=== PATIENT | female | born 1940 | race African-American/Black ===

== ENCOUNTER 2019-01-26 21:48 | Inpatient (IN) | payer MEDICARE ==
[~2019-01-26] VITALS: Ht 158.8 cm; Wt 72.7 kg
[2019-01-26] MEDS ORDERED: ALBUTEROL (0.083%) 2.5MG/3ML NEB HHN STA (22:44)
[2019-01-26 23:14] LABS: BASOPHILS % 0.6 % (0.0-2.0); EOSINOPHILS % 0.1 % (0.0-5.0); HEMATOCRIT. 35.2 % (36.0-48.0); HEMOGLOBIN. 11.5 g/dL (12.0-16.0); LYMPHOCYTES % 11.7 % (20.0-50.0); MEAN CORPUSCULAR HEMOGLOBIN 30.1 pg (28.0-32.0); MEAN CORPUSCULAR VOLUME 92.1 fL (81.0-99.0); MEAN PLATELET VOLUME 8.8 fl (7.4-10.4); MONOCYTES % 6.6 % (2.0-8.0); PLATELET 324 x1000/uL (130-400); RED BLOOD CELL COUNT 3.82 mill/uL (4.2-5.4)
[2019-01-26] MEDS ORDERED: LEVOFLOXACIN 500MG PREMIX 100 ML IV ONE (23:15)
[2019-01-26 23:20] LABS: CHLORIDE 104 mEq/L (98-107)
[2019-01-26 23:22] LABS: INR 1.1; PROTHROMBIN TIME 11.1 sec (9.1-11.1)
[2019-01-26] MEDS ORDERED: FUROSEMIDE 20MG/2ML VIAL IVP ONE (23:45)
[2019-01-27] LABS: CLARITY URINE CLOUDY (CLEAR); COLOR URINE YELLOW (YELLOW); KETONES URINE NEGATIVE (NEGATIVE); LEUKOCYTE ESTERASE URINE NEGATIVE (NEGATIVE); NITRITE URINE NEGATIVE (NEGATIVE); OCCULT BLOOD URINE TRACE (NEGATIVE); PH URINE 6.5 (4.5-8.0); PROTEIN URINE 3+ (NEGATIVE); SPECIFIC GRAVITY URINE 1.014 (1.005-1.030)
[2019-01-27] MEDS ORDERED: GUAIFENESIN 200MG/10ML SUGAR FREE UDC PO PRN (00:30)
[2019-01-27] MEDS ORDERED: MAGNESIUM/ALUMINUM HYDROXIDE/SIMETHICONE 30ML UDC PO PRN (00:30)
[2019-01-27] MEDS ORDERED: ACETAMINOPHEN 325MG TABLET PO PRN (00:30)
[2019-01-27] MEDS ORDERED: IPRATROPIUM/ALBUTEROL 0.5-3(2.5)MG/3ML NEB INH PRN (00:30)
[2019-01-27 03:02] LABS: CHLORIDE 105 mEq/L (98-107)
[2019-01-27] MEDS ORDERED: CEFTRIAXONE 1 G PREMIX 50 ML IV NR (03:45)
[2019-01-27] MEDS: ONDANSETRON HCL 4MG/2ML INJ IV PRN (05:27)
[2019-01-27 06:55] LABS: CREATINE KINASE MB FRACTION 1.1 ng/mL (0.5-3.6)
[2019-01-27] MEDS: HYDROCODONE/ACETAMINOPHEN 5/325MG TABLET PO PRN ×3 (10:05→19:03)
[2019-01-27] MEDS: FUROSEMIDE 40MG/4ML VIAL IV SCH (10:05)
[2019-01-27] MEDS: ASPIRIN 81MG EC TABLET PO SCH (10:05)
[2019-01-27] MEDS: CLONIDINE 0.1MG TABLET PO PRN ×2 (10:31→16:19)
[2019-01-27 12:30] VITALS: BP 140/90
[2019-01-27 14:00] VITALS: BP_SYST 140; BP_SYST 166; BP_DIAS 103; BP_DIAS 90
[2019-01-27] MEDS: ENOXAPARIN 40MG/0.4ML SYR SUBCUT SCH (14:30)
[2019-01-27] MEDS ORDERED: DEXTROSE 50% WATER 50ML SYRINGE IV PRN (14:30)
[2019-01-27 15:25] LABS: CREATINE KINASE 53 IU/L (26-192)
[2019-01-27 15:27] LABS: CREATINE KINASE MB FRACTION 1.5 ng/mL (0.5-3.6)
[2019-01-27 16:00] VITALS: BP 165/103
[2019-01-27] MEDS: BLOOD SUGAR DIAGNOSTIC STRIP TEST SCH ×2 (17:30→21:17)
[2019-01-27 17:35] LABS: *AMPHETAMINES SCREEN URINE NEGATIVE (NEGATIVE); *BARBITURATES SCREEN URINE NEGATIVE (NEGATIVE); *BENZODIAZEPINES SCREEN URINE NEGATIVE (NEGATIVE); *COCAINE SCREEN URINE NEGATIVE (NEGATIVE)
[2019-01-27 17:36] LABS: CANNABINOID URINE SCREEN NEGATIVE (NEGATIVE); METHADONE URINE SCREEN NEGATIVE (NEGATIVE); OPIATES URINE SCREEN PRESUMTIVE POSITIVE (NEGATIVE); PHENCYCLIDINE URINE SCREEN NEGATIVE (NEGATIVE)
[2019-01-27] MEDS ORDERED: [UNRECOGNIZED DRUG - OTHER] PO (17:55)
[2019-01-27] MEDS ORDERED: TRIA1TAB92 MT (17:55)
[2019-01-27] MEDS ORDERED: ASPI-1159 MT (17:55)
[2019-01-27] MEDS ORDERED: ATEN50TA MT (17:55)
[2019-01-27 19:35] VITALS: BP 147/87
[2019-01-27] MEDS: INSULIN LISPRO 100 UNITS/ML SUBCUT SCH ×2 (19:40→21:00)
[2019-01-27 20:00] VITALS: BP 127/73
[2019-01-27] MEDS: MORPHINE SULFATE 4 MG/ML CPJ (NOT FOR IM USE) IV PRN (21:57)
[2019-01-27 22:00] VITALS: BP 139/83
[2019-01-28] VITALS (12 sets, daily range): BP systolic 115–163; BP diastolic 38–95
[2019-01-28] MEDS: MORPHINE SULFATE 4 MG/ML CPJ (NOT FOR IM USE) IV PRN ×4 (04:12→20:23)
[2019-01-28] MEDS: HYDROCODONE/ACETAMINOPHEN 5/325MG TABLET PO PRN ×2 (05:28→18:33)
[2019-01-28] MEDS ORDERED: CEFTRIAXONE 1,000 MG in DEXTROSE 5% WATER 50 ML IV SCH (06:00)
[2019-01-28] MEDS ORDERED: CEFTRIAXONE 1 G PREMIX 50 ML IV SCH (06:00)
[2019-01-28 06:40] LABS: BASOPHILS % 0.7 % (0.0-2.0); EOSINOPHILS % 3.3 % (0.0-5.0); HEMATOCRIT. 33.8 % (36.0-48.0); HEMOGLOBIN. 11.1 g/dL (12.0-16.0); LYMPHOCYTES % 32.3 % (20.0-50.0); MEAN CORPUSCULAR HEMOGLOBIN 30.1 pg (28.0-32.0); MEAN CORPUSCULAR VOLUME 91.3 fL (81.0-99.0); MEAN PLATELET VOLUME 8.8 fl (7.4-10.4); NEUTROPHILS % 53.7 % (40.0-76.0); PLATELET 350 x1000/uL (130-400); RED CELL DISTRIBUTION WIDTH 13.8 % (11.6-14.6)
[2019-01-28 07:25] LABS: T4 FREE 1.69 ng/dL (0.76-1.46)
[2019-01-28] MEDS: BLOOD SUGAR DIAGNOSTIC STRIP TEST SCH ×4 (07:30→21:23)
[2019-01-28] MEDS: INSULIN LISPRO 100 UNITS/ML SUBCUT SCH ×4 (08:00→21:00)
[2019-01-28] MEDS: ASPIRIN 81MG EC TABLET PO SCH (08:58)
[2019-01-28] MEDS: FUROSEMIDE 40MG/4ML VIAL IV SCH ×2 (08:58→17:21)
[2019-01-28] MEDS: ENOXAPARIN 40MG/0.4ML SYR SUBCUT SCH (08:58)
[2019-01-28] MEDS: CEFTRIAXONE 1,000 MG in DEXTROSE 5% WATER 50 ML IV SCH (09:26)
[2019-01-28] MEDS ORDERED: HYDRALAZINE 20MG/ML VIAL IV NR (10:45)
[2019-01-28] MEDS ORDERED: AMLO-337 MT (11:18)
[2019-01-28] MEDS ORDERED: ATOR40TA70 MT (11:18)
[2019-01-28] MEDS ORDERED: TRAM50TA3 MT (11:19)
[2019-01-28] MEDS ORDERED: ONDA8TAB6 MT (11:20)
[2019-01-28] MEDS: AZITHROMYCIN 500 MG TABLET PO SCH (12:54)
[2019-01-28] MEDS: LOSARTAN POTASSIUM 50 MG TABLET PO SCH ×2 (12:54→17:21)
[2019-01-28] MEDS ORDERED: HYDRALAZINE 20MG/ML VIAL IV PRN (14:00)
[2019-01-28] MEDS ORDERED: GUAIFENESIN-DM 200MG-20MG/10ML UDC PO PRN (16:30)
[2019-01-28] MEDS: APIXABAN 5 MG TABLET PO SCH (17:21)
[2019-01-28] MEDS ORDERED: ATEN100T MT (17:43)
[2019-01-28] MEDS: METFORMIN HCL 500MG TABLET PO SCH (18:33)
[2019-01-28] MEDS: ATORVASTATIN CALCIUM 40MG TABLET PO SCH (21:22)
[2019-01-28] MEDS: ATENOLOL 100 MG TABLET PO SCH (21:22)
[2019-01-28] MEDS: AMLODIPINE 5MG TABLET PO SCH (21:22)
[2019-01-29] VITALS (12 sets, daily range): BP systolic 95–156; BP diastolic 47–81
[2019-01-29] MEDS: MORPHINE SULFATE 4 MG/ML CPJ (NOT FOR IM USE) IV PRN ×5 (02:23→20:38)
[2019-01-29] MEDS: CEFTRIAXONE 1,000 MG in DEXTROSE 5% WATER 50 ML IV SCH (05:26)
[2019-01-29 06:53] LABS: BASOPHILS % 0.4 % (0.0-2.0); HEMATOCRIT. 33.2 % (36.0-48.0); HEMOGLOBIN. 10.9 g/dL (12.0-16.0); LYMPHOCYTES % 32.2 % (20.0-50.0); MEAN CORPUSCULAR HEMOGLOBIN 30.1 pg (28.0-32.0); MEAN PLATELET VOLUME 8.2 fl (7.4-10.4); MONOCYTES % 10.2 % (2.0-8.0); NEUTROPHILS % 53.2 % (40.0-76.0); PLATELET 394 x1000/uL (130-400); RED BLOOD CELL COUNT 3.61 mill/uL (4.2-5.4)
[2019-01-29] MEDS: BLOOD SUGAR DIAGNOSTIC STRIP TEST SCH ×4 (07:48→20:38)
[2019-01-29] MEDS: METFORMIN HCL 500MG TABLET PO SCH ×2 (09:18→18:23)
[2019-01-29] MEDS: LOSARTAN POTASSIUM 50 MG TABLET PO SCH ×2 (09:18→18:23)
[2019-01-29] MEDS: FUROSEMIDE 40MG/4ML VIAL IV SCH ×2 (09:18→18:23)
[2019-01-29] MEDS: AMLODIPINE 5MG TABLET PO SCH (09:19)
[2019-01-29] MEDS: ATENOLOL 100 MG TABLET PO SCH (09:19)
[2019-01-29] MEDS: APIXABAN 5 MG TABLET PO SCH ×2 (09:19→18:23)
[2019-01-29] MEDS: AZITHROMYCIN 500 MG TABLET PO SCH (09:19)
[2019-01-29] MEDS: INSULIN LISPRO 100 UNITS/ML SUBCUT SCH ×4 (09:20→20:45)
[2019-01-29] MEDS: DILTIAZEM HCL 30MG TABLET PO SCH ×2 (12:24→18:24)
[2019-01-29] MEDS: LORAZEPAM 1MG TABLET PO SCH ×2 (12:25→18:23)
[2019-01-29] MEDS: SPIRONOLACTONE 25MG TABLET PO SCH (12:25)
[2019-01-29] MEDS ORDERED: LORA1TAB PO (13:26)
[2019-01-29] MEDS ORDERED: GABA-531 PO (13:27)
[2019-01-29] MEDS: ATORVASTATIN CALCIUM 40MG TABLET PO SCH (20:37)
[2019-01-29] MEDS: CARVEDILOL 25MG TABLET PO SCH (20:37)
[2019-01-30] VITALS (15 sets, daily range): BP systolic 93–152; BP diastolic 56–93
[2019-01-30] MEDS: CEFTRIAXONE 1,000 MG in DEXTROSE 5% WATER 50 ML IV SCH (05:00)
[2019-01-30] MEDS: DILTIAZEM HCL 30MG TABLET PO SCH ×3 (05:01→12:43)
[2019-01-30] MEDS: MORPHINE SULFATE 4 MG/ML CPJ (NOT FOR IM USE) IV PRN ×4 (05:39→19:48)
[2019-01-30 06:56] LABS: BASOPHILS % 0.4 % (0.0-2.0); EOSINOPHILS % 4.2 % (0.0-5.0); HEMATOCRIT. 32.9 % (36.0-48.0); HEMOGLOBIN. 10.8 g/dL (12.0-16.0); LYMPHOCYTES % 23.4 % (20.0-50.0); MEAN CORPUSCULAR HEMOGLOBIN 29.9 pg (28.0-32.0); MEAN CORPUSCULAR VOLUME 91.6 fL (81.0-99.0); MEAN PLATELET VOLUME 7.9 fl (7.4-10.4); MONOCYTES % 8.9 % (2.0-8.0); NEUTROPHILS % 63.1 % (40.0-76.0); PLATELET 397 x1000/uL (130-400); RED BLOOD CELL COUNT 3.59 mill/uL (4.2-5.4); RED CELL DISTRIBUTION WIDTH 14.3 % (11.6-14.6)
[2019-01-30 07:30] LABS: CHLORIDE 104 mEq/L (98-107)
[2019-01-30] MEDS: FUROSEMIDE 40MG/4ML VIAL IV SCH ×2 (08:14→18:05)
[2019-01-30] MEDS: METFORMIN HCL 500MG TABLET PO SCH ×2 (08:14→18:08)
[2019-01-30] MEDS: LOSARTAN POTASSIUM 50 MG TABLET PO SCH ×2 (08:16→18:05)
[2019-01-30] MEDS: SPIRONOLACTONE 25MG TABLET PO SCH (08:16)
[2019-01-30] MEDS: APIXABAN 5 MG TABLET PO SCH ×2 (08:16→18:05)
[2019-01-30] MEDS: AZITHROMYCIN 500 MG TABLET PO SCH (08:17)
[2019-01-30] MEDS: LORAZEPAM 1MG TABLET PO SCH ×2 (08:17→18:05)
[2019-01-30] MEDS: CARVEDILOL 25MG TABLET PO SCH ×2 (08:18→20:19)
[2019-01-30] MEDS: BLOOD SUGAR DIAGNOSTIC STRIP TEST SCH ×4 (08:28→21:00)
[2019-01-30] MEDS: INSULIN LISPRO 100 UNITS/ML SUBCUT SCH ×4 (08:36→21:00)
[2019-01-30] MEDS: DOCUSATE SODIUM 100MG CAPSULE PO PRN (08:36)
[2019-01-30] MEDS: DILTIAZEM HCL 120MG CAPSULE CD 24HR PO SCH (15:36)
[2019-01-30 16:39] LABS: HEPATITIS B SURFACE ANTIGEN NEGATIVE
[2019-01-30] MEDS: ATORVASTATIN CALCIUM 40MG TABLET PO SCH (20:19)
[2019-01-31] VITALS (8 sets, daily range): BP systolic 108–147; BP diastolic 56–102
[2019-01-31] MEDS: MORPHINE SULFATE 4 MG/ML CPJ (NOT FOR IM USE) IV PRN ×4 (04:48→20:45)
[2019-01-31] MEDS: CEFTRIAXONE 1,000 MG in DEXTROSE 5% WATER 50 ML IV SCH (05:00)
[2019-01-31] MEDS: HYDROCODONE/ACETAMINOPHEN 5/325MG TABLET PO PRN ×4 (05:12→21:36)
[2019-01-31] MEDS: BLOOD SUGAR DIAGNOSTIC STRIP TEST SCH ×4 (06:27→21:51)
[2019-01-31 07:15] LABS: CHLORIDE 103 mEq/L (98-107)
[2019-01-31 07:25] LABS: BASOPHILS % 0.4 % (0.0-2.0); EOSINOPHILS % 3.4 % (0.0-5.0); HEMATOCRIT. 33.2 % (36.0-48.0); HEMOGLOBIN. 10.6 g/dL (12.0-16.0); LYMPHOCYTES % 22.1 % (20.0-50.0); MEAN CORPUSCULAR HEMOGLOBIN 29.6 pg (28.0-32.0); MEAN CORPUSCULAR VOLUME 92.4 fL (81.0-99.0); MEAN PLATELET VOLUME 8.1 fl (7.4-10.4); NEUTROPHILS % 64.1 % (40.0-76.0); PLATELET 389 x1000/uL (130-400); RED BLOOD CELL COUNT 3.59 mill/uL (4.2-5.4); RED CELL DISTRIBUTION WIDTH 14.3 % (11.6-14.6)
[2019-01-31] MEDS: METFORMIN HCL 500MG TABLET PO SCH ×2 (09:49→17:07)
[2019-01-31] MEDS: SPIRONOLACTONE 25MG TABLET PO SCH (09:50)
[2019-01-31] MEDS: FUROSEMIDE 40MG/4ML VIAL IV SCH ×2 (09:50→17:06)
[2019-01-31] MEDS: LORAZEPAM 1MG TABLET PO SCH ×2 (09:51→17:07)
[2019-01-31] MEDS: DILTIAZEM HCL 120MG CAPSULE CD 24HR PO SCH (09:52)
[2019-01-31] MEDS: CARVEDILOL 25MG TABLET PO SCH ×2 (09:53→21:35)
[2019-01-31] MEDS: LOSARTAN POTASSIUM 50 MG TABLET PO SCH ×2 (09:53→17:07)
[2019-01-31] MEDS: AZITHROMYCIN 500 MG TABLET PO SCH (09:54)
[2019-01-31] MEDS: APIXABAN 5 MG TABLET PO SCH ×2 (09:54→17:07)
[2019-01-31] MEDS: INSULIN LISPRO 100 UNITS/ML SUBCUT SCH ×2 (18:00→23:03)
[2019-01-31] MEDS: ATORVASTATIN CALCIUM 40MG TABLET PO SCH (21:34)
[2019-02-01] VITALS: BP 144/74
[2019-02-01] MEDS: CEFTRIAXONE 1,000 MG in DEXTROSE 5% WATER 50 ML IV SCH (05:42)
[2019-02-01 08:00] VITALS: BP 156/82
[2019-02-01] MEDS: METFORMIN HCL 500MG TABLET PO SCH ×2 (08:00→18:00)
[2019-02-01] MEDS: BLOOD SUGAR DIAGNOSTIC STRIP TEST SCH ×4 (08:24→21:00)
[2019-02-01] MEDS: MORPHINE SULFATE 4 MG/ML CPJ (NOT FOR IM USE) IV PRN ×3 (08:37→18:07)
[2019-02-01] MEDS: AZITHROMYCIN 500 MG TABLET PO SCH (09:00)
[2019-02-01] MEDS: APIXABAN 5 MG TABLET PO SCH ×2 (11:00→16:47)
[2019-02-01] MEDS: LOSARTAN POTASSIUM 50 MG TABLET PO SCH ×2 (11:00→16:47)
[2019-02-01] MEDS: SPIRONOLACTONE 25MG TABLET PO SCH (11:00)
[2019-02-01] MEDS: DILTIAZEM HCL 120MG CAPSULE CD 24HR PO SCH (11:00)
[2019-02-01] MEDS: FUROSEMIDE 40MG/4ML VIAL IV SCH ×2 (11:01→16:47)
[2019-02-01] MEDS: CARVEDILOL 25MG TABLET PO SCH ×2 (11:01→20:46)
[2019-02-01] MEDS: LORAZEPAM 1MG TABLET PO SCH ×2 (11:01→16:47)
[2019-02-01] MEDS: INSULIN LISPRO 100 UNITS/ML SUBCUT SCH ×4 (11:03→22:43)
[2019-02-01 12:00] VITALS: BP 110/67
[2019-02-01] MEDS: ONDANSETRON HCL 4MG/2ML INJ IV PRN (14:45)
[2019-02-01 16:00] VITALS: BP 102/54
[2019-02-01] MEDS: DOCUSATE SODIUM 100MG CAPSULE PO PRN (20:40)
[2019-02-01] MEDS: ATORVASTATIN CALCIUM 40MG TABLET PO SCH (20:40)
[2019-02-02] MEDS: HYDROCODONE/ACETAMINOPHEN 5/325MG TABLET PO PRN ×3 (05:00→16:39)
[2019-02-02] MEDS ORDERED: CEFTRIAXONE 1 G PREMIX 50 ML IV SCH (06:00)
[2019-02-02] MEDS: BLOOD SUGAR DIAGNOSTIC STRIP TEST SCH ×2 (06:45→12:30)
[2019-02-02 07:40] VITALS: BP 110/68
[2019-02-02 08:00] VITALS: BP 110/68
[2019-02-02] MEDS ORDERED: REGADENOSON 0.4 MG/5 ML IV ONE ×2 (08:37→08:49)
[2019-02-02] MEDS: SPIRONOLACTONE 25MG TABLET PO SCH (10:37)
[2019-02-02] MEDS: LOSARTAN POTASSIUM 50 MG TABLET PO SCH ×2 (10:38→17:15)
[2019-02-02] MEDS: CARVEDILOL 25MG TABLET PO SCH (10:39)
[2019-02-02] MEDS: APIXABAN 5 MG TABLET PO SCH ×2 (10:39→17:14)
[2019-02-02] MEDS: METFORMIN HCL 500MG TABLET PO SCH ×2 (10:39→17:14)
[2019-02-02] MEDS: FUROSEMIDE 40MG/4ML VIAL IV SCH ×2 (10:40→17:00)
[2019-02-02] MEDS: LORAZEPAM 1MG TABLET PO SCH ×2 (10:40→17:15)
[2019-02-02] MEDS: DILTIAZEM HCL 120MG CAPSULE CD 24HR PO SCH (10:40)
[2019-02-02] MEDS: INSULIN LISPRO 100 UNITS/ML SUBCUT SCH ×3 (10:50→17:48)
[2019-02-02] MEDS ORDERED: MORPHINE SULFATE 4 MG/ML CPJ (NOT FOR IM USE) IV PRN (11:15)
[2019-02-02 12:00] VITALS: BP 121/53
[2019-02-02] MEDS ORDERED: REGADENOSON 0.4 MG/5 ML IV NR (13:30)
[2019-02-02] MEDS ORDERED: METF500T PO (13:45)
[2019-02-02] MEDS ORDERED: SPIR25TA PO (13:45)
[2019-02-02] MEDS ORDERED: LIP40 PO (13:45)
[2019-02-02] MEDS ORDERED: DILT120C88 PO (13:45)
[2019-02-02] MEDS ORDERED: COR25 PO (13:45)
[2019-02-02] MEDS ORDERED: APIX5TAB PO (13:45)
[2019-02-02 16:00] VITALS: BP 132/66
[2019-02-02 17:51] VITALS: BP 120/61
== END 2019-02-02 19:10 | disposition home health service (06) | DRG 291 ==
LOC: ER 21:48 → 5EST 23:34 → EDBEDREQ 23:45 → EDBEDREQTM 23:45
PROVIDERS: ADMIT Internal Medicine; ATTEND Internal Medicine
DX: I13.0 Hypertensive heart and chronic kidney disease with heart failure and stage 1 through stage 4 chronic kidney disease, or unspecified chronic kidney disease (principal); J18.9 Pneumonia, unspecified organism; J96.01 Acute respiratory failure with hypoxia; I50.23 Acute on chronic systolic (congestive) heart failure; J44.0 Chronic obstructive pulmonary disease with (acute) lower respiratory infection; J44.1 Chronic obstructive pulmonary disease with (acute) exacerbation; E44.1 Mild protein-calorie malnutrition; I42.9 Cardiomyopathy, unspecified; D64.9 Anemia, unspecified; E78.00 Pure hypercholesterolemia, unspecified; E78.5 Hyperlipidemia, unspecified; E11.22 Type 2 diabetes mellitus with diabetic chronic kidney disease; F41.9 Anxiety disorder, unspecified; I27.20 Pulmonary hypertension, unspecified; I34.0 Nonrheumatic mitral (valve) insufficiency; I48.2 Chronic atrial fibrillation; N18.2 Chronic kidney disease, stage 2 (mild); Z96.659 Presence of unspecified artificial knee joint; G89.29 Other chronic pain; Z79.01 Long term (current) use of anticoagulants; Z68.28 Body mass index [BMI] 28.0-28.9, adult; Z87.891 Personal history of nicotine dependence; Z87.81 Personal history of (healed) traumatic fracture; Z79.899 Other long term (current) drug therapy; Z79.82 Long term (current) use of aspirin
CPT/HCPCS: 36415; 70551; 71045; 78452; 80048; 80061; 80305; 82550; 82553; 82962; 83036; 83605; 83735; 83880; 84145; 84439; 84443; 84484; 93005; 93017; 93306; 93970; 94640; 96365; 96366; 96375; 97162; 99291; A9500; C1893; J0360; J0696; J1650; J1815; J1940; J1956; J2270; J2405; J2785; J7040; J7050; J7060; J7611; J7620

== ENCOUNTER 2019-11-22 04:12 | Inpatient (IN) | payer MEDICARE ==
[~2019-11-22] VITALS: Ht 162.6 cm; Wt 64.4 kg
[~2019-11-22 04:12] MED LIST: APIX5TAB PO; ASPI-1497 MT; ATOR40TA70 MT; COR25 PO; DILT120C88 PO; GABA-531 PO; LIP40 PO; LORA1TAB PO; METF500T PO; SPIR25TA PO; TRAM50TA3 MT
[2019-11-22] MEDS ORDERED: ALBUTEROL (0.083%) 2.5MG/3ML NEB HHN STA (04:16)
[2019-11-22] MEDS ORDERED: IPRATROPIUM BROMIDE (0.02%) 0.5MG/2.5ML NEB HHN STA (04:16)
[2019-11-22] MEDS ORDERED: ONDANSETRON HCL 4MG/2ML INJ IV STA (04:16)
[2019-11-22] MEDS ORDERED: DILTIAZEM HCL 5MG/ML 5ML VIAL IV ONE (04:30)
[2019-11-22] MEDS ORDERED: ASPIRIN 81MG TABLET PO ONE (04:30)
[2019-11-22 04:43] LABS: BG BASE EXCESS -7.7 mmol/L (-2.0-2.0); BG BILEVEL POS AIRWAY PRESSURE 15/5; BG CARBOXYHEMOGLOBIN 0.1 % (0.5-1.5); BG DEOXYHEMOGLOBIN 0.4 % (0.0-5.0); BG FRACTION INSPIRED OXYGEN 100; BG HCO3 ACT 16.6 mmol/L (22.0-26.0); BG METHEMOGLOBIN 0.3 % (0.0-1.5); BG OXYGEN SATURATION 99.6 % (92.0-98.5); BG OXYHEMOGLOBIN 99.2 % (94.0-97.0); BG PCO2 30.3 mmHg (35.0-45.0); BG PH 7.356 (7.350-7.450); BG PO2 306.9 mmHg (75.0-100.0); BG SAMPLE SITE LEFT RADIAL; BG TOTAL HEMOGLOBIN 12.8 g/dL (12.0-18.0); BG VENT MODE MASK - BIPAP; BG VENT RATE 16 set
[2019-11-22 05:01] LABS: CHLORIDE 106 mEq/L (98-107)
[2019-11-22 05:18] LABS: BASOPHILS % 0.5 % (0.0-2.0); EOSINOPHILS % 0.4 % (0.0-5.0); HEMATOCRIT. 38.2 % (36.0-48.0); LYMPHOCYTES % 20.1 % (20.0-50.0); MEAN CORPUSCULAR HEMOGLOBIN 29.2 pg (28.0-32.0); MEAN CORPUSCULAR VOLUME 92.6 fL (81.0-99.0); MEAN PLATELET VOLUME 9.6 fl (7.4-10.4); MONOCYTES % 7.3 % (2.0-8.0); NEUTROPHILS % 71.7 % (40.0-76.0); PLATELET 308 x1000/uL (130-400); RED BLOOD CELL COUNT 4.12 mill/uL (4.2-5.4); RED CELL DISTRIBUTION WIDTH 14.3 % (11.6-14.6)
[2019-11-22 05:37] LABS: INR 1.1; PARTIAL THROMBOPLASTIN TIME 27.8 sec (23.4-31.0); PROTHROMBIN TIME 11.7 sec (9.6-11.0)
[2019-11-22 05:40] LABS: CLARITY URINE CLEAR (CLEAR); COLOR URINE DARK YELLOW (YELLOW); KETONES URINE NEGATIVE (NEGATIVE); LEUKOCYTE ESTERASE URINE NEGATIVE (NEGATIVE); NITRITE URINE NEGATIVE (NEGATIVE); OCCULT BLOOD URINE TRACE (NEGATIVE); PH URINE 6.5 (4.5-8.0); PROTEIN URINE 4+ (NEGATIVE); SPECIFIC GRAVITY URINE 1.017 (1.005-1.030)
[2019-11-22] MEDS ORDERED: VISCOUS LIDOCAINE 2% 15 ML UDC PO ONE (05:45)
[2019-11-22] MEDS ORDERED: MAGNESIUM/ALUMINUM HYDROXIDE/SIMETHICONE 30ML UDC PO ONE (05:45)
[2019-11-22] MEDS ORDERED: FUROSEMIDE 40MG/4ML VIAL IVP ONE (06:00)
[2019-11-22] MEDS ORDERED: METHYLPREDNISOLONE SOD SUCC 40 MG/ML VIAL IV SCH (10:00)
[2019-11-22] MEDS: IPRATROPIUM/ALBUTEROL 0.5-3(2.5)MG/3ML NEB HHN PRN (10:11)
[2019-11-22] MEDS ORDERED: DEXTROSE 50% WATER 50ML SYRINGE IV PRN (10:15)
[2019-11-22] MEDS ORDERED: POTASSIUM CHLORIDE 20MEQ TABLET SR PO NR (10:15)
[2019-11-22] MEDS ORDERED: ACETAMINOPHEN 325MG TABLET PO PRN (10:15)
[2019-11-22] MEDS ORDERED: IPRATROPIUM BROMIDE (0.02%) 0.5MG/2.5ML NEB HHN PRN (10:15)
[2019-11-22] MEDS ORDERED: FUROSEMIDE 40MG/4ML VIAL IVP SCH (10:15)
[2019-11-22] MEDS ORDERED: FUROSEMIDE 40MG/4ML VIAL IVP NR (10:45)
[2019-11-22] MEDS ORDERED: DILTIAZEM HCL 60MG TABLET PO NR (10:45)
[2019-11-22] MEDS ORDERED: LEVOFLOXACIN 750MG PREMIX 150 ML IV SCH (11:15)
[2019-11-22] MEDS ORDERED: CLONIDINE 0.1MG TABLET PO PRN (11:15)
[2019-11-22] MEDS ORDERED: DILTIAZEM HCL 60MG TABLET PO SCH (12:00)
[2019-11-22 12:23] LABS: BG BASE EXCESS -1.7 mmol/L (-2.0-2.0); BG DEOXYHEMOGLOBIN 4.7 % (0.0-5.0); BG FRACTION INSPIRED OXYGEN 28; BG HCO3 ACT 19.1 mmol/L (22.0-26.0); BG METHEMOGLOBIN 0.3 % (0.0-1.5); BG OXYGEN SATURATION 95.3 % (92.0-98.5); BG PCO2 22.5 mmHg (35.0-45.0); BG PH 7.547 (7.350-7.450); BG PO2 70.6 mmHg (75.0-100.0); BG SAMPLE SITE RIGHT BRACHIAL; BG TOTAL HEMOGLOBIN 12.1 g/dL (12.0-18.0); BG VENT MODE NASAL CANNULA
[2019-11-22] MEDS: HYDROCODONE/ACETAMINOPHEN 5/325MG TABLET PO PRN ×3 (12:58→21:31)
[2019-11-22] MEDS ORDERED: APIXABAN 5 MG TABLET PO SCH (13:00)
[2019-11-22] MEDS: BLOOD SUGAR DIAGNOSTIC STRIP TEST SCH ×3 (13:15→21:53)
[2019-11-22] MEDS: LOSARTAN POTASSIUM 50 MG TABLET PO SCH (13:40)
[2019-11-22] MEDS: APIXABAN 5 MG TABLET PO SCH (13:40)
[2019-11-22] MEDS: SPIRONOLACTONE 25MG TABLET PO SCH (14:00)
[2019-11-22] MEDS: INSULIN LISPRO 100 UNITS/ML SUBCUT SCH ×3 (14:00→21:00)
[2019-11-22] MEDS: LEVOFLOXACIN 750MG PREMIX 150 ML IV SCH (14:03)
[2019-11-22] MEDS: DILTIAZEM HCL 60MG TABLET PO SCH ×2 (15:22→21:31)
[2019-11-22] MEDS: FUROSEMIDE 40MG/4ML VIAL IVP SCH (17:07)
[2019-11-22 19:40] VITALS: BP 148/96
[2019-11-22 20:00] VITALS: BP 148/96
[2019-11-22] MEDS: CARVEDILOL 6.25 MG TABLET PO SCH (21:31)
[2019-11-23] VITALS: BP 122/92
[2019-11-23] MEDS: APIXABAN 5 MG TABLET PO SCH ×3 (00:03→20:32)
[2019-11-23] MEDS: HYDROCODONE/ACETAMINOPHEN 5/325MG TABLET PO PRN ×3 (01:47→12:15)
[2019-11-23] MEDS: IPRATROPIUM/ALBUTEROL 0.5-3(2.5)MG/3ML NEB HHN PRN ×3 (02:28→20:55)
[2019-11-23] MEDS: ONDANSETRON HCL 4MG/2ML INJ IV PRN ×2 (03:51→20:31)
[2019-11-23 04:00] VITALS: BP 136/77
[2019-11-23] MEDS: DILTIAZEM HCL 60MG TABLET PO SCH ×3 (07:11→22:26)
[2019-11-23 07:14] LABS: HEMOGLOBIN. 11.3 g/dL (12.0-16.0); LYMPHOCYTES % 10.8 % (20.0-50.0); MEAN CORPUSCULAR HEMOGLOBIN 29.4 pg (28.0-32.0); MEAN CORPUSCULAR VOLUME 90.9 fL (81.0-99.0); MONOCYTES % 6.7 % (2.0-8.0); NEUTROPHILS % 82.5 % (40.0-76.0); PLATELET 360 x1000/uL (130-400); RED BLOOD CELL COUNT 3.85 mill/uL (4.2-5.4); RED CELL DISTRIBUTION WIDTH 14.8 % (11.6-14.6)
[2019-11-23] MEDS: BLOOD SUGAR DIAGNOSTIC STRIP TEST SCH ×4 (07:14→20:46)
[2019-11-23] MEDS: INSULIN LISPRO 100 UNITS/ML SUBCUT SCH ×4 (07:15→21:01)
[2019-11-23 07:35] LABS: CHLORIDE 106 mEq/L (98-107)
[2019-11-23 08:00] VITALS: BP 152/106
[2019-11-23] MEDS: CARVEDILOL 6.25 MG TABLET PO SCH ×2 (09:32→20:32)
[2019-11-23] MEDS: FUROSEMIDE 40MG/4ML VIAL IVP SCH ×2 (09:32→17:07)
[2019-11-23] MEDS: SPIRONOLACTONE 25MG TABLET PO SCH (09:32)
[2019-11-23] MEDS: LOSARTAN POTASSIUM 50 MG TABLET PO SCH (09:32)
[2019-11-23 12:00] VITALS: BP 149/92
[2019-11-23] MEDS ORDERED: FAMOTIDINE 20MG/2ML VIAL IV SCH (12:15)
[2019-11-23] MEDS ORDERED: LACTULOSE 20G/30ML UDC PO SCH (12:15)
[2019-11-23] MEDS: MORPHINE SULFATE 2 MG/ML CPJ (NOT FOR IM USE) IV PRN ×2 (15:16→20:34)
[2019-11-23 16:00] VITALS: BP 150/99
[2019-11-23 20:00] VITALS: BP 152/96
[2019-11-23] MEDS ORDERED: FAMOTIDINE 40MG TABLET PO SCH (21:00)
[2019-11-24] VITALS: BP 135/99
[2019-11-24] MEDS: HYDROCODONE/ACETAMINOPHEN 5/325MG TABLET PO PRN ×2 (00:13→17:18)
[2019-11-24] MEDS: IPRATROPIUM/ALBUTEROL 0.5-3(2.5)MG/3ML NEB HHN PRN (00:39)
[2019-11-24] MEDS: ONDANSETRON HCL 4MG/2ML INJ IV PRN ×2 (03:40→07:05)
[2019-11-24 04:00] VITALS: BP 164/91
[2019-11-24] MEDS: BLOOD SUGAR DIAGNOSTIC STRIP TEST SCH ×4 (06:58→21:00)
[2019-11-24] MEDS: DILTIAZEM HCL 60MG TABLET PO SCH ×3 (07:06→22:31)
[2019-11-24] MEDS: MORPHINE SULFATE 2 MG/ML CPJ (NOT FOR IM USE) IV PRN ×2 (07:06→10:33)
[2019-11-24] MEDS: INSULIN LISPRO 100 UNITS/ML SUBCUT SCH ×4 (07:12→21:00)
[2019-11-24 07:28] LABS: BASOPHILS % 0.3 % (0.0-2.0); HEMATOCRIT. 34.9 % (36.0-48.0); HEMOGLOBIN. 11.4 g/dL (12.0-16.0); MEAN CORPUSCULAR HEMOGLOBIN 29.7 pg (28.0-32.0); MEAN CORPUSCULAR VOLUME 90.9 fL (81.0-99.0); MEAN PLATELET VOLUME 9.1 fl (7.4-10.4); NEUTROPHILS % 81.7 % (40.0-76.0); PLATELET 381 x1000/uL (130-400); RED BLOOD CELL COUNT 3.84 mill/uL (4.2-5.4); RED CELL DISTRIBUTION WIDTH 14.7 % (11.6-14.6)
[2019-11-24 08:00] VITALS: BP 132/98
[2019-11-24] MEDS: SPIRONOLACTONE 25MG TABLET PO SCH (09:00)
[2019-11-24] MEDS: CARVEDILOL 6.25 MG TABLET PO SCH (09:00)
[2019-11-24] MEDS: LOSARTAN POTASSIUM 50 MG TABLET PO SCH (09:05)
[2019-11-24] MEDS: APIXABAN 5 MG TABLET PO SCH ×2 (09:05→22:30)
[2019-11-24] MEDS: FUROSEMIDE 40MG/4ML VIAL IVP SCH ×2 (09:05→17:00)
[2019-11-24 12:00] VITALS: BP 141/86
[2019-11-24] MEDS ORDERED: PANTOPRAZOLE 40MG DR TABLET PO PRN (12:00)
[2019-11-24] MEDS: LEVOFLOXACIN 750MG PREMIX 150 ML IV SCH (14:00)
[2019-11-24 16:00] VITALS: BP 150/86
[2019-11-24] MEDS: FLUTICASONE PROPIONATE 50MCG/SPRAY BOTTLE BOTHNSTRLS SCH ×2 (16:00→22:31)
[2019-11-24] MEDS: MONTELUKAST SODIUM 10MG TABLET PO SCH (17:18)
[2019-11-24] MEDS ORDERED: NA PHOS,M-B/NA PHOS,DI-BA ENEMA 118ML PR NR (19:15)
[2019-11-24 20:00] VITALS: BP 146/84
[2019-11-24] MEDS: CARVEDILOL 12.5MG TABLET PO SCH (22:31)
[2019-11-24] MEDS: FAMOTIDINE 20MG TABLET PO SCH (23:44)
[2019-11-25] VITALS: BP 129/67
[2019-11-25 04:00] VITALS: BP 150/94
[2019-11-25] MEDS: DILTIAZEM HCL 60MG TABLET PO SCH ×3 (06:08→22:00)
[2019-11-25] MEDS: BLOOD SUGAR DIAGNOSTIC STRIP TEST SCH ×4 (06:09→21:45)
[2019-11-25 07:00] LABS: BASOPHILS % 0.3 % (0.0-2.0); EOSINOPHILS % 0.2 % (0.0-5.0); HEMATOCRIT. 33.2 % (36.0-48.0); LYMPHOCYTES % 25.9 % (20.0-50.0); MEAN CORPUSCULAR VOLUME 90.2 fL (81.0-99.0); MEAN PLATELET VOLUME 9.3 fl (7.4-10.4); MONOCYTES % 7.1 % (2.0-8.0); NEUTROPHILS % 66.5 % (40.0-76.0); PLATELET 360 x1000/uL (130-400); RED BLOOD CELL COUNT 3.68 mill/uL (4.2-5.4); RED CELL DISTRIBUTION WIDTH 14.9 % (11.6-14.6)
[2019-11-25] MEDS: ONDANSETRON HCL 4MG/2ML INJ IV PRN ×2 (07:14→13:34)
[2019-11-25] MEDS: INSULIN LISPRO 100 UNITS/ML SUBCUT SCH ×4 (07:15→21:46)
[2019-11-25 08:00] VITALS: BP 149/87
[2019-11-25] MEDS: HYDROCODONE/ACETAMINOPHEN 5/325MG TABLET PO PRN ×2 (08:34→16:02)
[2019-11-25] MEDS: FUROSEMIDE 40MG/4ML VIAL IVP SCH ×2 (08:35→17:37)
[2019-11-25] MEDS: APIXABAN 5 MG TABLET PO SCH ×2 (08:35→21:45)
[2019-11-25] MEDS: SPIRONOLACTONE 25MG TABLET PO SCH (08:35)
[2019-11-25] MEDS: CARVEDILOL 12.5MG TABLET PO SCH ×2 (08:35→21:00)
[2019-11-25] MEDS: LOSARTAN POTASSIUM 50 MG TABLET PO SCH (08:35)
[2019-11-25] MEDS: FLUTICASONE PROPIONATE 50MCG/SPRAY BOTTLE BOTHNSTRLS SCH ×2 (08:36→21:45)
[2019-11-25] MEDS: LORAZEPAM 1MG TABLET PO SCH (08:45)
[2019-11-25] MEDS ORDERED: NA PHOS,M-B/NA PHOS,DI-BA ENEMA 118ML PR NR (11:45)
[2019-11-25 12:00] VITALS: BP 118/76
[2019-11-25] MEDS ORDERED: POTASSIUM CHLORIDE INJ 40 MEQ in DEXT 5% WATER 250 ML IV NR (13:00)
[2019-11-25] MEDS ORDERED: POTASSIUM CHLORIDE 20MEQ/PACKET PO NR (15:00)
[2019-11-25 16:00] VITALS: BP 128/72
[2019-11-25] MEDS ORDERED: MORPHINE SULFATE 2 MG/ML CPJ (NOT FOR IM USE) IV PRN (16:45)
[2019-11-25] MEDS: MORPHINE SULFATE 2 MG/ML CPJ (NOT FOR IM USE) IV PRN (16:55)
[2019-11-25] MEDS ORDERED: APIX2.5T PO (16:58)
[2019-11-25] MEDS ORDERED: TRAM50TA3 PO (16:59)
[2019-11-25] MEDS ORDERED: FURO80TA3 PO (17:00)
[2019-11-25] MEDS ORDERED: GLIP-12 PO (17:03)
[2019-11-25] MEDS ORDERED: OLME40TA18 PO (17:05)
[2019-11-25] MEDS: MONTELUKAST SODIUM 10MG TABLET PO SCH (17:37)
[2019-11-25 20:00] VITALS: BP 100/61
[2019-11-25] MEDS: DOCUSATE SODIUM 250MG CAPSULE PO SCH (20:00)
[2019-11-25] MEDS: FAMOTIDINE 20MG TABLET PO SCH (21:45)
[2019-11-25] MEDS: IPRATROPIUM/ALBUTEROL 0.5-3(2.5)MG/3ML NEB HHN PRN (22:30)
[2019-11-26] VITALS: BP 136/75
[2019-11-26] MEDS: LORAZEPAM 2MG/ML CPJ IV PRN ×2 (00:15→20:42)
[2019-11-26] MEDS: IPRATROPIUM/ALBUTEROL 0.5-3(2.5)MG/3ML NEB HHN PRN (01:12)
[2019-11-26 04:00] VITALS: BP 129/81
[2019-11-26] MEDS: MORPHINE SULFATE 2 MG/ML CPJ (NOT FOR IM USE) IV PRN ×2 (05:20→10:25)
[2019-11-26] MEDS: DILTIAZEM HCL 60MG TABLET PO SCH ×3 (06:00→21:56)
[2019-11-26] MEDS: BLOOD SUGAR DIAGNOSTIC STRIP TEST SCH ×4 (06:42→21:56)
[2019-11-26] MEDS: INSULIN LISPRO 100 UNITS/ML SUBCUT SCH ×4 (06:42→21:57)
[2019-11-26 06:58] LABS: BASOPHILS % 0.4 % (0.0-2.0); EOSINOPHILS % 1.3 % (0.0-5.0); HEMATOCRIT. 35.3 % (36.0-48.0); HEMOGLOBIN. 11.7 g/dL (12.0-16.0); LYMPHOCYTES % 35.6 % (20.0-50.0); MEAN CORPUSCULAR VOLUME 90.8 fL (81.0-99.0); MEAN PLATELET VOLUME 8.9 fl (7.4-10.4); MONOCYTES % 6.9 % (2.0-8.0); NEUTROPHILS % 55.8 % (40.0-76.0); PLATELET 426 x1000/uL (130-400); RED BLOOD CELL COUNT 3.89 mill/uL (4.2-5.4); RED CELL DISTRIBUTION WIDTH 14.7 % (11.6-14.6)
[2019-11-26 08:00] VITALS: BP 145/93
[2019-11-26] MEDS: APIXABAN 5 MG TABLET PO SCH ×2 (10:22→21:56)
[2019-11-26] MEDS: LOSARTAN POTASSIUM 50 MG TABLET PO SCH (10:22)
[2019-11-26] MEDS: LORAZEPAM 1MG TABLET PO SCH (10:22)
[2019-11-26] MEDS: DOCUSATE SODIUM 250MG CAPSULE PO SCH ×2 (10:22→17:09)
[2019-11-26] MEDS: FUROSEMIDE 40MG/4ML VIAL IVP SCH ×2 (10:23→17:10)
[2019-11-26] MEDS: SPIRONOLACTONE 25MG TABLET PO SCH (10:23)
[2019-11-26] MEDS: FLUTICASONE PROPIONATE 50MCG/SPRAY BOTTLE BOTHNSTRLS SCH ×2 (10:23→21:00)
[2019-11-26] MEDS: CARVEDILOL 12.5MG TABLET PO SCH ×2 (10:23→21:56)
[2019-11-26] MEDS: METOCLOPRAMIDE HCL 10MG/2ML VIAL IV SCH ×2 (11:54→17:10)
[2019-11-26 12:00] VITALS: BP 129/92
[2019-11-26] MEDS: LEVOFLOXACIN 750MG PREMIX 150 ML IV SCH (13:49)
[2019-11-26] MEDS: ONDANSETRON HCL 4MG/2ML INJ IV PRN (14:58)
[2019-11-26 16:00] VITALS: BP 131/89
[2019-11-26] MEDS: MONTELUKAST SODIUM 10MG TABLET PO SCH (17:09)
[2019-11-26 20:00] VITALS: BP 159/91
[2019-11-26] MEDS: FAMOTIDINE 20MG TABLET PO SCH (21:56)
[2019-11-27] VITALS: BP 124/76
[2019-11-27] MEDS: METOCLOPRAMIDE HCL 10MG/2ML VIAL IV SCH ×4 (00:08→17:12)
[2019-11-27 04:00] VITALS: BP 150/96
[2019-11-27] MEDS: MORPHINE SULFATE 2 MG/ML CPJ (NOT FOR IM USE) IV PRN (06:12)
[2019-11-27] MEDS: DILTIAZEM HCL 60MG TABLET PO SCH ×2 (06:13→14:20)
[2019-11-27] MEDS: BLOOD SUGAR DIAGNOSTIC STRIP TEST SCH ×4 (06:13→21:15)
[2019-11-27] MEDS: INSULIN LISPRO 100 UNITS/ML SUBCUT SCH ×4 (06:41→21:15)
[2019-11-27 07:27] LABS: BASOPHILS % 0.6 % (0.0-2.0); EOSINOPHILS % 1.7 % (0.0-5.0); HEMATOCRIT. 35.9 % (36.0-48.0); HEMOGLOBIN. 11.9 g/dL (12.0-16.0); LYMPHOCYTES % 30.9 % (20.0-50.0); MEAN CORPUSCULAR VOLUME 90.3 fL (81.0-99.0); MEAN PLATELET VOLUME 8.7 fl (7.4-10.4); MONOCYTES % 7.6 % (2.0-8.0); NEUTROPHILS % 59.2 % (40.0-76.0); PLATELET 410 x1000/uL (130-400); RED BLOOD CELL COUNT 3.98 mill/uL (4.2-5.4); RED CELL DISTRIBUTION WIDTH 14.8 % (11.6-14.6)
[2019-11-27 07:39] LABS: CHLORIDE 107 mEq/L (98-107)
[2019-11-27 08:00] VITALS: BP 141/84
[2019-11-27] MEDS: APIXABAN 5 MG TABLET PO SCH ×2 (09:19→21:07)
[2019-11-27] MEDS: FLUTICASONE PROPIONATE 50MCG/SPRAY BOTTLE BOTHNSTRLS SCH (09:19)
[2019-11-27] MEDS: FUROSEMIDE 40MG/4ML VIAL IVP SCH ×2 (09:19→16:58)
[2019-11-27] MEDS: DOCUSATE SODIUM 250MG CAPSULE PO SCH ×2 (09:20→16:58)
[2019-11-27] MEDS: LORAZEPAM 1MG TABLET PO SCH (09:20)
[2019-11-27] MEDS: SPIRONOLACTONE 25MG TABLET PO SCH (09:20)
[2019-11-27] MEDS: LOSARTAN POTASSIUM 50 MG TABLET PO SCH (09:20)
[2019-11-27] MEDS: CARVEDILOL 12.5MG TABLET PO SCH ×2 (09:20→21:07)
[2019-11-27 12:00] VITALS: BP 125/86
[2019-11-27] MEDS: ONDANSETRON HCL 4MG/2ML INJ IV PRN (15:43)
[2019-11-27 16:00] VITALS: BP 131/75
[2019-11-27] MEDS: MONTELUKAST SODIUM 10MG TABLET PO SCH (16:58)
[2019-11-27 20:25] VITALS: BP 121/55
[2019-11-27] MEDS ORDERED: ATORVASTATIN CALCIUM 40MG TABLET PO SCH (21:00)
[2019-11-27] MEDS: FAMOTIDINE 20MG TABLET PO SCH (21:07)
== END 2019-11-27 21:35 | DRG 871 ==
LOC: ER 04:12 → EDBEDREQSVC 05:56 → EDBEDREQTM 05:56 → EDBEDREQ 05:56 → EDBEDREQSVC 08:52 → ENRESERV 18:04 → 5WST 19:38
PROVIDERS: ADMIT Internal Medicine Nephrology; ATTEND Internal Medicine Nephrology
PROC: 5A09357 Assistance with Respiratory Ventilation, Less than 24 Consecutive Hours, Continuous Positive Airway Pressure (ICD-10-PCS; principal; 2019-11-22)
DX: A41.9 Sepsis, unspecified organism (principal); J96.00 Acute respiratory failure, unspecified whether with hypoxia or hypercapnia; J18.9 Pneumonia, unspecified organism; I50.23 Acute on chronic systolic (congestive) heart failure; G92 Toxic encephalopathy; I63.81 Other cerebral infarction due to occlusion or stenosis of small artery; I48.20 Chronic atrial fibrillation, unspecified; I42.9 Cardiomyopathy, unspecified; E44.1 Mild protein-calorie malnutrition; Z96.652 Presence of left artificial knee joint; I27.20 Pulmonary hypertension, unspecified; I11.0 Hypertensive heart disease with heart failure; E87.6 Hypokalemia; E78.5 Hyperlipidemia, unspecified; D64.9 Anemia, unspecified; I07.1 Rheumatic tricuspid insufficiency; E11.42 Type 2 diabetes mellitus with diabetic polyneuropathy; G83.14 Monoplegia of lower limb affecting left nondominant side; H70.92 Unspecified mastoiditis, left ear; R26.9 Unspecified abnormalities of gait and mobility; K81.9 Cholecystitis, unspecified; E78.00 Pure hypercholesterolemia, unspecified; J00 Acute nasopharyngitis [common cold]; K21.9 Gastro-esophageal reflux disease without esophagitis; Z90.710 Acquired absence of both cervix and uterus; Z98.1 Arthrodesis status; Z79.01 Long term (current) use of anticoagulants; Z88.8 Allergy status to other drugs, medicaments and biological substances; Z79.82 Long term (current) use of aspirin; Z79.84 Long term (current) use of oral hypoglycemic drugs; Z79.899 Other long term (current) drug therapy; Z68.24 Body mass index [BMI] 24.0-24.9, adult
CPT/HCPCS: 36415; 36600; 70551; 71045; 74018; 74176; 76700; 78227; 80048; 80053; 80061; 80076; 81003; 82140; 82375; 82805; 82962; 83735; 83880; 84484; 85025; 87804; 92523; 92610; 93005; 93306; 93880; 94640; 94660; 96374; 96375; 96376; 97116; 97162; 99291; A6261; A9500; A9537; C1893; J1815; J1940; J1956; J2060; J2270; J2405; J2765; J2920; J3480; J3490; J7060; J7611; J7620

== ENCOUNTER 2019-11-27 21:35 | Inpatient (IN) | payer MEDICARE ==
[~2019-11-27] VITALS: Ht 162.6 cm; Wt 64.4 kg
[~2019-11-27 21:35] MED LIST changes: +APIX2.5T PO; -APIX5TAB PO; -ATOR40TA70 MT; +FURO80TA3 PO; -GABA-531 PO; +GLIP-12 PO; -LIP40 PO; +OLME40TA18 PO; -SPIR25TA PO; -TRAM50TA3 MT; +TRAM50TA3 PO
[2019-11-27 21:45] VITALS: BP 145/85
[2019-11-28] MEDS ORDERED: PANTOPRAZOLE 40MG DR TABLET PO PRN
[2019-11-28] MEDS ORDERED: DEXTROSE 50% WATER 50ML SYRINGE IV PRN
[2019-11-28] MEDS ORDERED: LORAZEPAM 2MG/ML CPJ IV PRN
[2019-11-28] MEDS: DILTIAZEM HCL 60MG TABLET PO SCH ×4 (00:44→21:02)
[2019-11-28] MEDS: MORPHINE SULFATE 2 MG/ML CPJ (NOT FOR IM USE) IV PRN ×2 (01:00→23:31)
[2019-11-28] MEDS: METOCLOPRAMIDE HCL 10MG/2ML VIAL IV SCH ×5 (01:00→23:31)
[2019-11-28 01:26] VITALS: BP 145/85
[2019-11-28] MEDS: BLOOD SUGAR DIAGNOSTIC STRIP TEST SCH ×4 (06:15→20:59)
[2019-11-28] MEDS: INSULIN LISPRO 100 UNITS/ML SUBCUT SCH ×5 (06:33→20:59)
[2019-11-28 08:00] VITALS: BP 160/87
[2019-11-28 08:11] LABS: BASOPHILS % 0.5 % (0.0-2.0); EOSINOPHILS % 2.6 % (0.0-5.0); HEMATOCRIT. 34.6 % (36.0-48.0); HEMOGLOBIN. 11.2 g/dL (12.0-16.0); LYMPHOCYTES % 30.8 % (20.0-50.0); MEAN CORPUSCULAR HEMOGLOBIN 29.6 pg (28.0-32.0); MEAN CORPUSCULAR VOLUME 91.1 fL (81.0-99.0); MEAN PLATELET VOLUME 8.5 fl (7.4-10.4); MONOCYTES % 8.9 % (2.0-8.0); NEUTROPHILS % 57.2 % (40.0-76.0); PLATELET 423 x1000/uL (130-400); RED BLOOD CELL COUNT 3.79 mill/uL (4.2-5.4); RED CELL DISTRIBUTION WIDTH 14.6 % (11.6-14.6)
[2019-11-28] MEDS: DOCUSATE SODIUM 250MG CAPSULE PO SCH ×2 (08:23→16:51)
[2019-11-28] MEDS: LOSARTAN POTASSIUM 50 MG TABLET PO SCH (08:23)
[2019-11-28] MEDS: SPIRONOLACTONE 25MG TABLET PO SCH (08:23)
[2019-11-28] MEDS: FUROSEMIDE 40MG/4ML VIAL IVP SCH ×2 (08:23→17:39)
[2019-11-28 08:24] LABS: CHLORIDE 108 mEq/L (98-107)
[2019-11-28] MEDS: APIXABAN 5 MG TABLET PO SCH ×2 (08:24→20:50)
[2019-11-28] MEDS: LORAZEPAM 1MG TABLET PO SCH (08:24)
[2019-11-28] MEDS: CARVEDILOL 12.5MG TABLET PO SCH ×2 (08:24→20:51)
[2019-11-28] MEDS: HYDROCODONE/ACETAMINOPHEN 5/325MG TABLET PO PRN ×2 (10:41→17:49)
[2019-11-28] MEDS: FLUTICASONE PROPIONATE 50MCG/SPRAY BOTTLE BOTHNSTRLS SCH ×2 (10:42→20:51)
[2019-11-28 13:15] VITALS: BP 138/79
[2019-11-28] MEDS ORDERED: LEVOFLOXACIN 750MG PREMIX 150 ML IV SCH (14:00)
[2019-11-28] MEDS: MONTELUKAST SODIUM 10MG TABLET PO SCH (16:51)
[2019-11-28 20:00] VITALS: BP 134/80
[2019-11-28] MEDS: ATORVASTATIN CALCIUM 40MG TABLET PO SCH (20:50)
[2019-11-28] MEDS: FAMOTIDINE 20MG TABLET PO SCH (20:51)
[2019-11-29] MEDS: DILTIAZEM HCL 60MG TABLET PO SCH ×2 (06:04→13:05)
[2019-11-29] MEDS: METOCLOPRAMIDE HCL 10MG/2ML VIAL IV SCH ×3 (06:05→17:29)
[2019-11-29] MEDS: BLOOD SUGAR DIAGNOSTIC STRIP TEST SCH ×4 (06:09→21:00)
[2019-11-29] MEDS: INSULIN LISPRO 100 UNITS/ML SUBCUT SCH ×4 (06:49→21:00)
[2019-11-29 07:48] VITALS: BP 149/77
[2019-11-29] MEDS: APIXABAN 5 MG TABLET PO SCH (08:38)
[2019-11-29] MEDS: LORAZEPAM 1MG TABLET PO SCH (08:38)
[2019-11-29] MEDS: DOCUSATE SODIUM 250MG CAPSULE PO SCH ×2 (08:38→16:32)
[2019-11-29] MEDS: SPIRONOLACTONE 25MG TABLET PO SCH (08:39)
[2019-11-29] MEDS: CARVEDILOL 12.5MG TABLET PO SCH (08:39)
[2019-11-29] MEDS: LOSARTAN POTASSIUM 50 MG TABLET PO SCH (08:39)
[2019-11-29] MEDS: FUROSEMIDE 40MG/4ML VIAL IVP SCH ×2 (08:39→16:23)
[2019-11-29] MEDS: ASPIRIN 81MG TABLET PO SCH (08:46)
[2019-11-29] MEDS: FLUTICASONE PROPIONATE 50MCG/SPRAY BOTTLE BOTHNSTRLS SCH (08:47)
[2019-11-29 11:40] VITALS: BP 145/84
[2019-11-29] MEDS: HYDROCODONE/ACETAMINOPHEN 5/325MG TABLET PO PRN (11:43)
[2019-11-29] MEDS ORDERED: DIATR MEGLU/DIATRIZOATE SOLN 30ML PO SCH (13:15)
[2019-11-29] MEDS: ONDANSETRON HCL 4MG/2ML INJ IV PRN (15:10)
[2019-11-29] MEDS: MORPHINE SULFATE 2 MG/ML CPJ (NOT FOR IM USE) IV PRN ×2 (15:15→21:04)
[2019-11-29 15:19] VITALS: BP 136/79
[2019-11-29] MEDS: MONTELUKAST SODIUM 10MG TABLET PO SCH (16:23)
[2019-11-29 20:00] VITALS: BP 133/73
[2019-11-29] MEDS: CLONIDINE 0.1MG TABLET PO PRN (23:51)
[2019-11-30] MEDS: FLUTICASONE PROPIONATE 50MCG/SPRAY BOTTLE BOTHNSTRLS SCH ×5 (01:09→20:35)
[2019-11-30] MEDS: APIXABAN 5 MG TABLET PO SCH ×3 (01:11→20:34)
[2019-11-30] MEDS: FAMOTIDINE 20MG TABLET PO SCH (01:11)
[2019-11-30] MEDS: ATORVASTATIN CALCIUM 40MG TABLET PO SCH ×2 (01:11→20:34)
[2019-11-30] MEDS: DILTIAZEM HCL 60MG TABLET PO SCH ×4 (01:12→21:44)
[2019-11-30] MEDS: CARVEDILOL 12.5MG TABLET PO SCH ×3 (01:12→20:34)
[2019-11-30] MEDS: METOCLOPRAMIDE HCL 10MG/2ML VIAL IV SCH ×5 (01:16→23:44)
[2019-11-30] MEDS: INSULIN LISPRO 100 UNITS/ML SUBCUT SCH ×5 (01:40→20:39)
[2019-11-30] MEDS ORDERED: IOHEXOL-300 100 ML BOTTLE ONE (03:20)
[2019-11-30] MEDS: ONDANSETRON HCL 4MG/2ML INJ IV PRN (04:22)
[2019-11-30] MEDS: BLOOD SUGAR DIAGNOSTIC STRIP TEST SCH ×4 (05:44→20:39)
[2019-11-30 07:05] LABS: BASOPHILS % 0.3 % (0.0-2.0); EOSINOPHILS % 2.3 % (0.0-5.0); HEMATOCRIT. 33.8 % (36.0-48.0); HEMOGLOBIN. 11.1 g/dL (12.0-16.0); LYMPHOCYTES % 26.3 % (20.0-50.0); MEAN CORPUSCULAR HEMOGLOBIN 29.8 pg (28.0-32.0); MEAN CORPUSCULAR VOLUME 91.1 fL (81.0-99.0); MEAN PLATELET VOLUME 7.5 fl (7.4-10.4); MONOCYTES % 10.4 % (2.0-8.0); NEUTROPHILS % 60.7 % (40.0-76.0); PLATELET 394 x1000/uL (130-400); RED BLOOD CELL COUNT 3.71 mill/uL (4.2-5.4); RED CELL DISTRIBUTION WIDTH 14.5 % (11.6-14.6)
[2019-11-30 07:14] LABS: CHLORIDE 108 mEq/L (98-107)
[2019-11-30 08:00] VITALS: BP 143/76
[2019-11-30] MEDS: LOSARTAN POTASSIUM 50 MG TABLET PO SCH (08:32)
[2019-11-30] MEDS: FUROSEMIDE 40MG/4ML VIAL IVP SCH (08:32)
[2019-11-30] MEDS: SPIRONOLACTONE 25MG TABLET PO SCH (08:33)
[2019-11-30] MEDS: ASPIRIN 81MG TABLET PO SCH (08:33)
[2019-11-30] MEDS: DOCUSATE SODIUM 250MG CAPSULE PO SCH ×2 (08:33→17:22)
[2019-11-30] MEDS: MORPHINE SULFATE 2 MG/ML CPJ (NOT FOR IM USE) IV PRN ×2 (08:34→17:55)
[2019-11-30] MEDS: LORAZEPAM 1MG TABLET PO SCH (08:44)
[2019-11-30] MEDS: HYDROCODONE/ACETAMINOPHEN 5/325MG TABLET PO PRN ×2 (12:55→23:50)
[2019-11-30] MEDS: MONTELUKAST SODIUM 10MG TABLET PO SCH (17:22)
[2019-11-30] MEDS: FUROSEMIDE 40MG TABLET PO SCH (17:22)
[2019-11-30 20:00] VITALS: BP 173/89
[2019-11-30] MEDS: OMEPRAZOLE 20MG CAPSULE EXTENDED RELEASE PO SCH (20:34)
[2019-11-30 21:44] VITALS: BP 131/71
[2019-12-01] MEDS: HYDROCODONE/ACETAMINOPHEN 5/325MG TABLET PO PRN ×4 (03:54→21:08)
[2019-12-01] MEDS: METOCLOPRAMIDE HCL 10MG/2ML VIAL IV SCH ×2 (06:15→11:26)
[2019-12-01] MEDS: DILTIAZEM HCL 60MG TABLET PO SCH ×3 (06:15→21:09)
[2019-12-01] MEDS: BLOOD SUGAR DIAGNOSTIC STRIP TEST SCH ×4 (06:19→21:05)
[2019-12-01] MEDS: INSULIN LISPRO 100 UNITS/ML SUBCUT SCH ×4 (06:51→21:00)
[2019-12-01 07:17] LABS: BASOPHILS % 0.4 % (0.0-2.0); EOSINOPHILS % 2.3 % (0.0-5.0); HEMATOCRIT. 34.8 % (36.0-48.0); HEMOGLOBIN. 11.2 g/dL (12.0-16.0); LYMPHOCYTES % 29.1 % (20.0-50.0); MEAN CORPUSCULAR HEMOGLOBIN 29.5 pg (28.0-32.0); MEAN CORPUSCULAR VOLUME 91.2 fL (81.0-99.0); MEAN PLATELET VOLUME 7.6 fl (7.4-10.4); MONOCYTES % 10.1 % (2.0-8.0); NEUTROPHILS % 58.1 % (40.0-76.0); PLATELET 430 x1000/uL (130-400); RED BLOOD CELL COUNT 3.81 mill/uL (4.2-5.4); RED CELL DISTRIBUTION WIDTH 14.7 % (11.6-14.6)
[2019-12-01 07:54] LABS: CHLORIDE 107 mEq/L (98-107)
[2019-12-01 08:00] VITALS: BP 157/92
[2019-12-01 08:06] LABS: AMYLASE 42 IU/L (25-115); PHOSPHORUS 3.5 mg/dL (2.5-4.9)
[2019-12-01 08:09] LABS: TOTAL IRON BINDING CAPACITY 294 ug/dL (250-450)
[2019-12-01] MEDS: OMEPRAZOLE 20MG CAPSULE EXTENDED RELEASE PO SCH ×2 (08:54→21:07)
[2019-12-01] MEDS: FLUTICASONE PROPIONATE 50MCG/SPRAY BOTTLE BOTHNSTRLS SCH (08:54)
[2019-12-01] MEDS: ONDANSETRON HCL 4MG/2ML INJ IV PRN (08:54)
[2019-12-01] MEDS: LOSARTAN POTASSIUM 50 MG TABLET PO SCH ×2 (08:54→21:09)
[2019-12-01] MEDS: APIXABAN 5 MG TABLET PO SCH ×2 (08:55→21:05)
[2019-12-01] MEDS: CARVEDILOL 12.5MG TABLET PO SCH ×2 (08:55→21:09)
[2019-12-01] MEDS: ASPIRIN 81MG TABLET PO SCH (08:55)
[2019-12-01] MEDS: DOCUSATE SODIUM 250MG CAPSULE PO SCH ×2 (08:55→17:36)
[2019-12-01] MEDS: SPIRONOLACTONE 25MG TABLET PO SCH (08:55)
[2019-12-01] MEDS: FUROSEMIDE 40MG TABLET PO SCH ×2 (08:55→17:36)
[2019-12-01] MEDS: LORAZEPAM 1MG TABLET PO SCH (08:58)
[2019-12-01] MEDS: BISACODYL 5MG TABLET PO PRN (14:33)
[2019-12-01] MEDS: METOCLOPRAMIDE HCL 10MG TABLET PO SCH (17:36)
[2019-12-01] MEDS: MONTELUKAST SODIUM 10MG TABLET PO SCH (17:36)
[2019-12-01] MEDS: LIDOCAINE 5% PATCH TOP SCH (17:37)
[2019-12-01] MEDS ORDERED: METHYL SALICYLATE/MENTHOL CREAM 85GM TOP PRN (18:00)
[2019-12-01 19:37] LABS: FOLIC ACID (FOLATE) SERUM 7.7 ng/mL (>5.38)
[2019-12-01 20:00] VITALS: BP 150/84
[2019-12-01] MEDS: ATORVASTATIN CALCIUM 40MG TABLET PO SCH (21:05)
[2019-12-02] MEDS: METOCLOPRAMIDE HCL 10MG TABLET PO SCH ×4 (00:22→17:00)
[2019-12-02] MEDS: DILTIAZEM HCL 60MG TABLET PO SCH ×2 (06:16→14:11)
[2019-12-02] MEDS: BLOOD SUGAR DIAGNOSTIC STRIP TEST SCH ×4 (06:17→21:36)
[2019-12-02] MEDS: HYDROCODONE/ACETAMINOPHEN 5/325MG TABLET PO PRN ×4 (07:34→22:44)
[2019-12-02 08:00] VITALS: BP 159/83
[2019-12-02] MEDS: INSULIN LISPRO 100 UNITS/ML SUBCUT SCH ×4 (09:00→22:30)
[2019-12-02] MEDS: FUROSEMIDE 40MG TABLET PO SCH ×2 (09:36→16:59)
[2019-12-02] MEDS: LIDOCAINE 5% PATCH TOP SCH (09:36)
[2019-12-02] MEDS: DOCUSATE SODIUM 250MG CAPSULE PO SCH ×2 (09:36→16:59)
[2019-12-02] MEDS: OMEPRAZOLE 20MG CAPSULE EXTENDED RELEASE PO SCH ×2 (09:36→21:35)
[2019-12-02] MEDS: ASPIRIN 81MG TABLET PO SCH (09:36)
[2019-12-02] MEDS: APIXABAN 5 MG TABLET PO SCH ×2 (09:36→21:35)
[2019-12-02] MEDS: LORAZEPAM 1MG TABLET PO SCH (09:37)
[2019-12-02] MEDS: CARVEDILOL 12.5MG TABLET PO SCH ×2 (09:37→21:35)
[2019-12-02] MEDS: LOSARTAN POTASSIUM 50 MG TABLET PO SCH ×2 (09:37→21:35)
[2019-12-02] MEDS: SPIRONOLACTONE 25MG TABLET PO SCH (09:37)
[2019-12-02] MEDS ORDERED: LIDOCAINE HCL/EPINEPHRINE 1%-EPI 1:100,000 30 ML VIAL INFIL SCH (11:15)
[2019-12-02] MEDS ORDERED: BUPIVACAINE HCL/PF 0.5% (5MG/ML) 10ML INFIL SCH (11:15)
[2019-12-02] MEDS ORDERED: ETHYL CHLORIDE CAN TOP SCH (11:15)
[2019-12-02] MEDS ORDERED: TRIAMCINOLONE ACETONIDE 40MG/ML 1ML VIAL IM SCH (11:15)
[2019-12-02] MEDS ORDERED: LIDOCAINE HCL/EPINEPHRINE 1%-EPI 1:100,000 20 ML VIAL INFIL SCH (13:15)
[2019-12-02] MEDS ORDERED: MAGNESIUM/ALUMINUM HYDROXIDE/SIMETHICONE 30ML UDC PO PRN (15:45)
[2019-12-02] MEDS: MONTELUKAST SODIUM 10MG TABLET PO SCH (16:59)
[2019-12-02 20:00] VITALS: BP 147/90
[2019-12-02] MEDS: ATORVASTATIN CALCIUM 40MG TABLET PO SCH (21:35)
[2019-12-02] MEDS ORDERED: DIPHENOXYLATE/ATROPINE 2.5/0.025MG TABLET PO PRN (22:00)
[2019-12-03] MEDS: METOCLOPRAMIDE HCL 10MG TABLET PO SCH ×5 (00:30→23:59)
[2019-12-03] MEDS ORDERED: HYDROCODONE/ACETAMINOPHEN 5/325MG TABLET PO PRN (05:30)
[2019-12-03] MEDS: BLOOD SUGAR DIAGNOSTIC STRIP TEST SCH ×4 (05:37→20:58)
[2019-12-03] MEDS: INSULIN LISPRO 100 UNITS/ML SUBCUT SCH ×4 (06:57→21:11)
[2019-12-03 07:00] LABS: BASOPHILS % 0.4 % (0.0-2.0); EOSINOPHILS % 1.9 % (0.0-5.0); HEMATOCRIT. 35.5 % (36.0-48.0); HEMOGLOBIN. 11.5 g/dL (12.0-16.0); LYMPHOCYTES % 26.7 % (20.0-50.0); MEAN CORPUSCULAR HEMOGLOBIN 29.6 pg (28.0-32.0); MEAN CORPUSCULAR VOLUME 91.3 fL (81.0-99.0); MEAN PLATELET VOLUME 8.3 fl (7.4-10.4); MONOCYTES % 9.2 % (2.0-8.0); NEUTROPHILS % 61.8 % (40.0-76.0); PLATELET 349 x1000/uL (130-400); RED BLOOD CELL COUNT 3.89 mill/uL (4.2-5.4); RED CELL DISTRIBUTION WIDTH 14.3 % (11.6-14.6)
[2019-12-03 07:08] LABS: CHLORIDE 109 mEq/L (98-107)
[2019-12-03 08:00] VITALS: BP 159/88
[2019-12-03] MEDS: LORAZEPAM 1MG TABLET PO SCH (08:19)
[2019-12-03] MEDS: DOCUSATE SODIUM 250MG CAPSULE PO SCH ×2 (08:19→17:13)
[2019-12-03] MEDS: LOSARTAN POTASSIUM 50 MG TABLET PO SCH ×2 (08:19→22:27)
[2019-12-03] MEDS: FUROSEMIDE 40MG TABLET PO SCH ×2 (08:19→17:13)
[2019-12-03] MEDS: ASPIRIN 81MG TABLET PO SCH (08:19)
[2019-12-03] MEDS: APIXABAN 5 MG TABLET PO SCH ×2 (08:19→20:55)
[2019-12-03] MEDS: DILTIAZEM HCL 300MG CAPSULE SR 24HR PO SCH (08:20)
[2019-12-03] MEDS: CARVEDILOL 12.5MG TABLET PO SCH ×2 (08:20→22:28)
[2019-12-03] MEDS: OMEPRAZOLE 20MG CAPSULE EXTENDED RELEASE PO SCH ×2 (08:21→20:55)
[2019-12-03] MEDS: SPIRONOLACTONE 25MG TABLET PO SCH (08:21)
[2019-12-03] MEDS: LIDOCAINE 5% PATCH TOP SCH (08:22)
[2019-12-03] MEDS: IPRATROPIUM/ALBUTEROL 0.5-3(2.5)MG/3ML NEB HHN PRN (12:34)
[2019-12-03] MEDS: ACETAMINOPHEN 325MG TABLET PO PRN (12:48)
[2019-12-03] MEDS: HYDROCODONE/ACETAMINOPHEN 5/325MG TABLET PO PRN ×2 (14:28→20:55)
[2019-12-03] MEDS: MONTELUKAST SODIUM 10MG TABLET PO SCH (17:13)
[2019-12-03 20:00] VITALS: BP 158/83
[2019-12-03] MEDS: ATORVASTATIN CALCIUM 40MG TABLET PO SCH (20:55)
[2019-12-03] MEDS: FLUTICASONE PROPIONATE 50MCG/SPRAY BOTTLE BOTHNSTRLS SCH (20:56)
[2019-12-03] MEDS: TEMAZEPAM 15MG CAPSULE PO SCH (22:32)
[2019-12-04] MEDS: HYDROCODONE/ACETAMINOPHEN 5/325MG TABLET PO PRN ×4 (03:16→20:40)
[2019-12-04] MEDS: IPRATROPIUM/ALBUTEROL 0.5-3(2.5)MG/3ML NEB HHN PRN (05:13)
[2019-12-04] MEDS: BLOOD SUGAR DIAGNOSTIC STRIP TEST SCH ×4 (05:30→20:52)
[2019-12-04] MEDS: METOCLOPRAMIDE HCL 10MG TABLET PO SCH ×4 (05:33→23:51)
[2019-12-04] MEDS: INSULIN LISPRO 100 UNITS/ML SUBCUT SCH ×4 (06:13→21:58)
[2019-12-04 08:00] VITALS: BP 177/113
[2019-12-04] MEDS: LIDOCAINE 5% PATCH TOP SCH (08:31)
[2019-12-04] MEDS: CARVEDILOL 12.5MG TABLET PO SCH ×2 (08:32→20:43)
[2019-12-04] MEDS: DILTIAZEM HCL 300MG CAPSULE SR 24HR PO SCH (08:32)
[2019-12-04] MEDS: APIXABAN 5 MG TABLET PO SCH (08:32)
[2019-12-04] MEDS: SPIRONOLACTONE 25MG TABLET PO SCH (08:33)
[2019-12-04] MEDS: DOCUSATE SODIUM 250MG CAPSULE PO SCH ×2 (08:33→17:00)
[2019-12-04] MEDS: ASPIRIN 81MG TABLET PO SCH (08:33)
[2019-12-04] MEDS: LOSARTAN POTASSIUM 50 MG TABLET PO SCH ×2 (08:33→20:43)
[2019-12-04] MEDS: OMEPRAZOLE 20MG CAPSULE EXTENDED RELEASE PO SCH ×2 (08:33→20:42)
[2019-12-04] MEDS: FLUTICASONE PROPIONATE 50MCG/SPRAY BOTTLE BOTHNSTRLS SCH ×2 (09:00→22:28)
[2019-12-04 10:00] VITALS: BP 134/7
[2019-12-04] MEDS: FUROSEMIDE 40MG TABLET PO SCH ×2 (12:52→16:44)
[2019-12-04] MEDS: MONTELUKAST SODIUM 10MG TABLET PO SCH (16:44)
[2019-12-04 20:00] VITALS: BP 152/70
[2019-12-04] MEDS: ATORVASTATIN CALCIUM 40MG TABLET PO SCH (20:43)
[2019-12-04] MEDS ORDERED: ZOLPIDEM TARTRATE 5MG TABLET PO PRN (21:00)
[2019-12-04] MEDS ORDERED: LORAZEPAM 0.5MG TABLET PO PRN (21:00)
[2019-12-04] MEDS: TEMAZEPAM 15MG CAPSULE PO SCH (21:00)
[2019-12-04] MEDS: APIXABAN 2.5 MG TABLET PO SCH (23:51)
[2019-12-05] MEDS: IPRATROPIUM/ALBUTEROL 0.5-3(2.5)MG/3ML NEB HHN PRN ×3 (00:41→09:25)
[2019-12-05 04:07] LABS: 25-HYDROXY VITAMIN D3 24 ng/mL (.)
[2019-12-05] MEDS: METOCLOPRAMIDE HCL 10MG TABLET PO SCH ×3 (06:44→17:24)
[2019-12-05] MEDS: BLOOD SUGAR DIAGNOSTIC STRIP TEST SCH ×4 (06:45→21:59)
[2019-12-05] MEDS: INSULIN LISPRO 100 UNITS/ML SUBCUT SCH ×4 (06:50→22:17)
[2019-12-05 07:29] LABS: CHLORIDE 109 mEq/L (98-107)
[2019-12-05 07:33] LABS: BASOPHILS % 0.2 % (0.0-2.0); EOSINOPHILS % 0.2 % (0.0-5.0); HEMATOCRIT. 35.9 % (36.0-48.0); HEMOGLOBIN. 11.4 g/dL (12.0-16.0); LYMPHOCYTES % 12.5 % (20.0-50.0); MEAN CORPUSCULAR VOLUME 90.9 fL (81.0-99.0); MEAN PLATELET VOLUME 8.5 fl (7.4-10.4); MONOCYTES % 6.7 % (2.0-8.0); NEUTROPHILS % 80.4 % (40.0-76.0); PLATELET 350 x1000/uL (130-400); RED BLOOD CELL COUNT 3.95 mill/uL (4.2-5.4); RED CELL DISTRIBUTION WIDTH 14.9 % (11.6-14.6)
[2019-12-05 08:00] VITALS: BP 175/95
[2019-12-05] MEDS: HYDROCODONE/ACETAMINOPHEN 5/325MG TABLET PO PRN ×3 (08:10→20:39)
[2019-12-05] MEDS: OMEPRAZOLE 20MG CAPSULE EXTENDED RELEASE PO SCH ×2 (08:11→20:40)
[2019-12-05] MEDS: DOCUSATE SODIUM 250MG CAPSULE PO SCH ×2 (08:12→16:15)
[2019-12-05] MEDS: LOSARTAN POTASSIUM 50 MG TABLET PO SCH ×2 (08:12→21:58)
[2019-12-05] MEDS: FUROSEMIDE 40MG TABLET PO SCH ×3 (08:12→22:02)
[2019-12-05] MEDS: APIXABAN 2.5 MG TABLET PO SCH ×2 (08:12→20:40)
[2019-12-05] MEDS: ASPIRIN 81MG TABLET PO SCH (08:12)
[2019-12-05] MEDS: CARVEDILOL 12.5MG TABLET PO SCH ×2 (08:13→21:58)
[2019-12-05] MEDS: DILTIAZEM HCL 300MG CAPSULE SR 24HR PO SCH (08:13)
[2019-12-05] MEDS: SPIRONOLACTONE 25MG TABLET PO SCH (08:13)
[2019-12-05] MEDS: FLUTICASONE PROPIONATE 50MCG/SPRAY BOTTLE BOTHNSTRLS SCH ×2 (08:15→20:40)
[2019-12-05] MEDS: LIDOCAINE 5% PATCH TOP SCH (08:16)
[2019-12-05] MEDS: BISACODYL 5MG TABLET PO PRN (09:17)
[2019-12-05] MEDS ORDERED: ERGOCALCIFEROL 50000UNITS CAPSULE PO SCH (11:15)
[2019-12-05] MEDS: LACTULOSE 20G/30ML UDC PO SCH ×2 (13:41→22:00)
[2019-12-05 15:00] VITALS: BP 150/88
[2019-12-05] MEDS: MONTELUKAST SODIUM 10MG TABLET PO SCH (16:14)
[2019-12-05 20:00] VITALS: BP 177/74
[2019-12-05] MEDS: ATORVASTATIN CALCIUM 40MG TABLET PO SCH (20:39)
[2019-12-06] MEDS: DIAZEPAM 2 MG TABLET PO SCH ×3 (00:35→20:04)
[2019-12-06] MEDS: METOCLOPRAMIDE HCL 10MG TABLET PO SCH ×4 (00:35→18:00)
[2019-12-06 02:20] LABS: CLARITY URINE CLEAR (CLEAR); COLOR URINE YELLOW (YELLOW); KETONES URINE NEGATIVE (NEGATIVE); LEUKOCYTE ESTERASE URINE NEGATIVE (NEGATIVE); NITRITE URINE NEGATIVE (NEGATIVE); OCCULT BLOOD URINE NEGATIVE (NEGATIVE); PROTEIN URINE 1+ (NEGATIVE); SPECIFIC GRAVITY URINE 1.008 (1.005-1.030); UROBILINOGEN URINE 0.2 E.U./dL (0.2-1.0)
[2019-12-06] MEDS: HYDROCODONE/ACETAMINOPHEN 5/325MG TABLET PO PRN ×4 (03:28→21:40)
[2019-12-06] MEDS: LACTULOSE 20G/30ML UDC PO SCH (05:10)
[2019-12-06] MEDS: BLOOD SUGAR DIAGNOSTIC STRIP TEST SCH ×4 (06:06→21:00)
[2019-12-06] MEDS: INSULIN LISPRO 100 UNITS/ML SUBCUT SCH ×4 (06:28→21:41)
[2019-12-06 08:00] VITALS: BP 199/98
[2019-12-06] MEDS: IPRATROPIUM/ALBUTEROL 0.5-3(2.5)MG/3ML NEB HHN PRN ×3 (08:15→21:47)
[2019-12-06] MEDS: OMEPRAZOLE 20MG CAPSULE EXTENDED RELEASE PO SCH ×2 (08:37→20:05)
[2019-12-06] MEDS: APIXABAN 2.5 MG TABLET PO SCH (08:37)
[2019-12-06] MEDS: ASPIRIN 81MG TABLET PO SCH (08:38)
[2019-12-06] MEDS: FUROSEMIDE 40MG TABLET PO SCH (08:38)
[2019-12-06] MEDS: LOSARTAN POTASSIUM 50 MG TABLET PO SCH ×2 (08:38→20:05)
[2019-12-06] MEDS: CARVEDILOL 12.5MG TABLET PO SCH ×2 (08:38→20:06)
[2019-12-06] MEDS: SPIRONOLACTONE 25MG TABLET PO SCH (08:39)
[2019-12-06] MEDS: DILTIAZEM HCL 300MG CAPSULE SR 24HR PO SCH (08:39)
[2019-12-06] MEDS: LIDOCAINE 5% PATCH TOP SCH (08:39)
[2019-12-06] MEDS: FLUTICASONE PROPIONATE 50MCG/SPRAY BOTTLE BOTHNSTRLS SCH ×2 (08:41→20:14)
[2019-12-06] MEDS: DOCUSATE SODIUM 250MG CAPSULE PO SCH ×2 (10:00→18:13)
[2019-12-06] MEDS ORDERED: APIXABAN 5 MG TABLET PO SCH (12:50)
[2019-12-06] MEDS: MONTELUKAST SODIUM 10MG TABLET PO SCH (18:13)
[2019-12-06 20:00] VITALS: BP 170/90
[2019-12-06] MEDS: ATORVASTATIN CALCIUM 40MG TABLET PO SCH (20:05)
[2019-12-06] MEDS: APIXABAN 5 MG TABLET PO SCH (20:05)
[2019-12-07] MEDS: METOCLOPRAMIDE HCL 10MG TABLET PO SCH ×4 (00:16→17:10)
[2019-12-07] MEDS: HYDROCODONE/ACETAMINOPHEN 5/325MG TABLET PO PRN ×4 (01:47→20:03)
[2019-12-07] MEDS: BLOOD SUGAR DIAGNOSTIC STRIP TEST SCH ×4 (06:30→21:00)
[2019-12-07] MEDS: INSULIN LISPRO 100 UNITS/ML SUBCUT SCH ×4 (06:36→22:56)
[2019-12-07 08:00] VITALS: BP 159/92
[2019-12-07 08:14] LABS: BASOPHILS % 0.5 % (0.0-2.0); HEMATOCRIT. 35.1 % (36.0-48.0); HEMOGLOBIN. 11.1 g/dL (12.0-16.0); LYMPHOCYTES % 15.8 % (20.0-50.0); MEAN CORPUSCULAR HEMOGLOBIN 28.8 pg (28.0-32.0); MEAN CORPUSCULAR VOLUME 90.6 fL (81.0-99.0); MEAN PLATELET VOLUME 8.5 fl (7.4-10.4); MONOCYTES % 7.1 % (2.0-8.0); NEUTROPHILS % 75.6 % (40.0-76.0); PLATELET 359 x1000/uL (130-400); RED BLOOD CELL COUNT 3.87 mill/uL (4.2-5.4); RED CELL DISTRIBUTION WIDTH 14.7 % (11.6-14.6)
[2019-12-07] MEDS: OMEPRAZOLE 20MG CAPSULE EXTENDED RELEASE PO SCH ×2 (08:16→22:27)
[2019-12-07] MEDS: APIXABAN 5 MG TABLET PO SCH ×2 (08:17→22:25)
[2019-12-07] MEDS: DIAZEPAM 2 MG TABLET PO SCH ×2 (08:18→22:26)
[2019-12-07] MEDS: DILTIAZEM HCL 300MG CAPSULE SR 24HR PO SCH (08:18)
[2019-12-07] MEDS: FUROSEMIDE 40MG TABLET PO SCH (08:18)
[2019-12-07] MEDS: DOCUSATE SODIUM 250MG CAPSULE PO SCH ×2 (08:18→16:32)
[2019-12-07] MEDS: ASPIRIN 81MG TABLET PO SCH (08:19)
[2019-12-07] MEDS: LOSARTAN POTASSIUM 50 MG TABLET PO SCH ×2 (08:19→22:25)
[2019-12-07] MEDS: SPIRONOLACTONE 25MG TABLET PO SCH (08:19)
[2019-12-07] MEDS: CARVEDILOL 12.5MG TABLET PO SCH ×2 (08:19→22:26)
[2019-12-07] MEDS: LIDOCAINE 5% PATCH TOP SCH (08:20)
[2019-12-07 08:22] LABS: CHLORIDE 108 mEq/L (98-107)
[2019-12-07 14:08] VITALS: BP 122/77
[2019-12-07] MEDS: MONTELUKAST SODIUM 10MG TABLET PO SCH (16:32)
[2019-12-07 20:00] VITALS: BP 141/85
[2019-12-07] MEDS: ATORVASTATIN CALCIUM 40MG TABLET PO SCH (22:25)
[2019-12-08] MEDS: METOCLOPRAMIDE HCL 10MG TABLET PO SCH ×4 (00:30→18:00)
[2019-12-08] MEDS: HYDROCODONE/ACETAMINOPHEN 5/325MG TABLET PO PRN ×2 (05:18→12:37)
[2019-12-08] MEDS: BLOOD SUGAR DIAGNOSTIC STRIP TEST SCH ×4 (06:30→21:04)
[2019-12-08] MEDS: INSULIN LISPRO 100 UNITS/ML SUBCUT SCH ×4 (06:32→22:07)
[2019-12-08 08:00] VITALS: BP 151/74
[2019-12-08] MEDS: CARVEDILOL 12.5MG TABLET PO SCH ×2 (08:22→20:44)
[2019-12-08] MEDS: FUROSEMIDE 40MG TABLET PO SCH (08:22)
[2019-12-08] MEDS: LOSARTAN POTASSIUM 50 MG TABLET PO SCH ×2 (08:22→20:43)
[2019-12-08] MEDS: ASPIRIN 81MG TABLET PO SCH (08:23)
[2019-12-08] MEDS: OMEPRAZOLE 20MG CAPSULE EXTENDED RELEASE PO SCH ×2 (08:23→20:43)
[2019-12-08] MEDS: DILTIAZEM HCL 300MG CAPSULE SR 24HR PO SCH (08:23)
[2019-12-08] MEDS: DOCUSATE SODIUM 250MG CAPSULE PO SCH ×2 (08:23→18:12)
[2019-12-08] MEDS: APIXABAN 5 MG TABLET PO SCH ×2 (08:23→22:52)
[2019-12-08] MEDS: SPIRONOLACTONE 25MG TABLET PO SCH (08:24)
[2019-12-08] MEDS: DIAZEPAM 2 MG TABLET PO SCH ×2 (08:24→20:43)
[2019-12-08] MEDS: LIDOCAINE 5% PATCH TOP SCH (08:25)
[2019-12-08] MEDS: INSULIN GLARGINE UD 100 UNITS/ML SYR SUBCUT SCH (10:43)
[2019-12-08] MEDS: MONTELUKAST SODIUM 10MG TABLET PO SCH (18:12)
[2019-12-08 20:00] VITALS: BP 169/94
[2019-12-08] MEDS: ATORVASTATIN CALCIUM 40MG TABLET PO SCH (20:43)
[2019-12-09] MEDS: METOCLOPRAMIDE HCL 10MG TABLET PO SCH ×3 (01:02→11:01)
[2019-12-09] MEDS: ACETAMINOPHEN 325MG TABLET PO PRN (03:59)
[2019-12-09] MEDS: BLOOD SUGAR DIAGNOSTIC STRIP TEST SCH ×2 (05:52→11:01)
[2019-12-09] MEDS: IPRATROPIUM/ALBUTEROL 0.5-3(2.5)MG/3ML NEB HHN PRN (06:16)
[2019-12-09] MEDS: INSULIN LISPRO 100 UNITS/ML SUBCUT SCH ×2 (06:49→12:10)
[2019-12-09] MEDS: CLONIDINE 0.1MG TABLET PO PRN (07:43)
[2019-12-09] MEDS: HYDROCODONE/ACETAMINOPHEN 5/325MG TABLET PO PRN ×2 (07:43→12:10)
[2019-12-09 08:11] VITALS: BP 193/96
[2019-12-09] MEDS: DOCUSATE SODIUM 250MG CAPSULE PO SCH (08:52)
[2019-12-09] MEDS: APIXABAN 5 MG TABLET PO SCH (08:52)
[2019-12-09] MEDS: ASPIRIN 81MG TABLET PO SCH (08:52)
[2019-12-09] MEDS: SPIRONOLACTONE 25MG TABLET PO SCH (08:52)
[2019-12-09] MEDS: DIAZEPAM 2 MG TABLET PO SCH (08:52)
[2019-12-09] MEDS: CARVEDILOL 12.5MG TABLET PO SCH (08:53)
[2019-12-09] MEDS: DILTIAZEM HCL 300MG CAPSULE SR 24HR PO SCH (08:53)
[2019-12-09] MEDS: FUROSEMIDE 40MG TABLET PO SCH (08:53)
[2019-12-09] MEDS: LIDOCAINE 5% PATCH TOP SCH (08:54)
[2019-12-09] MEDS: OMEPRAZOLE 20MG CAPSULE EXTENDED RELEASE PO SCH (08:59)
[2019-12-09] MEDS: LOSARTAN POTASSIUM 50 MG TABLET PO SCH (09:01)
[2019-12-09] MEDS ORDERED: HYDR-4001 MT ×2 (10:33→10:34)
[2019-12-09] MEDS ORDERED: LORA-249 MT ×2 (10:33→10:34)
[2019-12-09] MEDS: INSULIN GLARGINE UD 100 UNITS/ML SYR SUBCUT SCH (11:00)
[2019-12-09 11:50] VITALS: BP 138/71
[2019-12-09 12:10] VITALS: BP 138/71
[2019-12-16] MEDS ORDERED: ISOS60TA4 PO (10:12)
[2019-12-16] MEDS ORDERED: DILT120C88 PO (10:12)
[2019-12-16] MEDS ORDERED: HYDR-4135 PO (10:12)
[2019-12-16] MEDS ORDERED: IPRA3AMP9 NEB (10:20)
== END 2019-12-09 16:30 | disposition home health service (06) | DRG 56 ==
LOC: 5WST 21:35 → UNDOADMIN 23:33 → 5WST 23:42
PROVIDERS: ADMIT Physical Medicine & Rehabilitation Spinal Cord Injury Medicine; ATTEND Internal Medicine Nephrology
DX: I69.354 Hemiplegia and hemiparesis following cerebral infarction affecting left non-dominant side (principal); I63.81 Other cerebral infarction due to occlusion or stenosis of small artery; I50.23 Acute on chronic systolic (congestive) heart failure; E43 Unspecified severe protein-calorie malnutrition; J96.00 Acute respiratory failure, unspecified whether with hypoxia or hypercapnia; J18.9 Pneumonia, unspecified organism; A41.9 Sepsis, unspecified organism; G92 Toxic encephalopathy; I42.9 Cardiomyopathy, unspecified; I48.20 Chronic atrial fibrillation, unspecified; K80.10 Calculus of gallbladder with chronic cholecystitis without obstruction; I11.0 Hypertensive heart disease with heart failure; M48.061 Spinal stenosis, lumbar region without neurogenic claudication; Z96.652 Presence of left artificial knee joint; I27.20 Pulmonary hypertension, unspecified; I25.10 Atherosclerotic heart disease of native coronary artery without angina pectoris; E87.6 Hypokalemia; D64.9 Anemia, unspecified; K21.9 Gastro-esophageal reflux disease without esophagitis; E78.5 Hyperlipidemia, unspecified; G89.4 Chronic pain syndrome; R26.9 Unspecified abnormalities of gait and mobility; R53.81 Other malaise; E11.42 Type 2 diabetes mellitus with diabetic polyneuropathy; I08.1 Rheumatic disorders of both mitral and tricuspid valves; E87.8 Other disorders of electrolyte and fluid balance, not elsewhere classified; E78.00 Pure hypercholesterolemia, unspecified; K59.00 Constipation, unspecified; D63.8 Anemia in other chronic diseases classified elsewhere; E55.9 Vitamin D deficiency, unspecified; F32.9 Major depressive disorder, single episode, unspecified; F41.9 Anxiety disorder, unspecified; G47.00 Insomnia, unspecified; K57.90 Diverticulosis of intestine, part unspecified, without perforation or abscess without bleeding; M19.011 Primary osteoarthritis, right shoulder; M75.01 Adhesive capsulitis of right shoulder; Z91.81 History of falling; Z79.01 Long term (current) use of anticoagulants; Z79.899 Other long term (current) drug therapy; Z68.24 Body mass index [BMI] 24.0-24.9, adult; Z88.8 Allergy status to other drugs, medicaments and biological substances; Z87.891 Personal history of nicotine dependence; Z87.81 Personal history of (healed) traumatic fracture; Z79.4 Long term (current) use of insulin
CPT/HCPCS: 36415; 71045; 73030; 74177; 80048; 80053; 80076; 81003; 82150; 82306; 82607; 82728; 82746; 82962; 83540; 83550; 83735; 84100; 84134; 84443; 85025; 87015; 87045; 87427; 87449; 89055; 92523; 92610; 93005; 93970; 94618; 97110; 97112; 97116; 97129; 97130; 97162; 97166; 97530; 97535; J1815; J1940; J1956; J2060; J2270; J2405; J2765; J3301; J3490; J7620; J8597; Q9963; Q9967

== ENCOUNTER → 2023-08-14 | Outpatient (CLI) | payer MEDICARE ==
[~2023-08-14] MED LIST changes: +BARIUM SULFATE 450ML ORAL SUSP ONE; -FURO80TA3 PO; +HYDR-4001 MT; +HYDR-4135 PO; +IPRA3AMP9 NEB; +ISOS60TA76 PO; +LORA-249 MT; -TRAM50TA3 PO
== END | disposition home or self-care (01) ==
LOC: CT 07:30
PROVIDERS: ATTEND Internal Medicine Gastroenterology
DX: K80.20 Calculus of gallbladder without cholecystitis without obstruction (principal); J98.11 Atelectasis; J98.4 Other disorders of lung; N28.89 Other specified disorders of kidney and ureter; I70.0 Atherosclerosis of aorta; M47.816 Spondylosis without myelopathy or radiculopathy, lumbar region; M43.26 Fusion of spine, lumbar region; K57.30 Diverticulosis of large intestine without perforation or abscess without bleeding; R10.9 Unspecified abdominal pain; Z90.710 Acquired absence of both cervix and uterus
CPT/HCPCS: 74176

== ENCOUNTER → 2024-03-16 | Outpatient (CLI) | payer MEDICARE ==
[~2024-03-16] MED LIST changes: +ATOR40TA70 PO; -BARIUM SULFATE 450ML ORAL SUSP ONE; +CARV25TA47 PO; +CLON0.1T PO; -COR25 PO; +DILT-26 PO; -DILT120C88 PO; +FLUT16SP15 NS; +FURO40TA5 PO; -GLIP-12 PO; -HYDR-4001 MT; -HYDR-4135 PO; +HYDR50TA40 PO; -IPRA3AMP9 NEB; +ISOS120T13 PO; -ISOS60TA76 PO; +LIDO35.421 TP; -LORA-249 MT; +LORA-250 PO; -LORA1TAB PO; -METF500T PO; +ONDA8TAB13 PO; +SPIR25TA6 PO
== END | disposition home or self-care (01) ==
LOC: RAD 12:39
DX: M16.12 Unilateral primary osteoarthritis, left hip (principal); M25.852 Other specified joint disorders, left hip; M85.852 Other specified disorders of bone density and structure, left thigh
CPT/HCPCS: 73521

== ENCOUNTER → 2024-07-03 | Outpatient (CLI) | payer MEDICARE | END | disposition home or self-care (01) | LOC: RAD 10:23 | PROVIDERS: ATTEND Internal Medicine | DX: M17.0 Bilateral primary osteoarthritis of knee (principal); M85.862 Other specified disorders of bone density and structure, left lower leg; M85.861 Other specified disorders of bone density and structure, right lower leg; M76.892 Other specified enthesopathies of left lower limb, excluding foot; M76.891 Other specified enthesopathies of right lower limb, excluding foot; M25.862 Other specified joint disorders, left knee; M25.861 Other specified joint disorders, right knee; M47.816 Spondylosis without myelopathy or radiculopathy, lumbar region; Z96.642 Presence of left artificial hip joint | CPT/HCPCS: 73521; 73560 ==